=== PATIENT | male | born 1985 | race Caucasian/White ===

== ENCOUNTER 2017-05-05 01:08 | Emergency (ER) | payer OTHER ==
[2017-05-05 01:58] VITALS: BP 146/75; PULSE 70; TEMP 98.2; BMI 25.0
--- NOTE | 2017-05-05 02:15 | PDOC ---
History of Present Illness <Kimmy Sims - Last Filed: 05/05/17 06:15> - General History Source: Patient Exam Limitations: No Limitations - History of Present Illness Initial Comments: 05/05/17 05:43 Patient is a 32 year old male with no significant past medical history who presents to the ED with complaints of right upper quadrant pain that began 5 days ago. Patient reports right upper quadrant pain is a constant whining and waning pain that was intense enough to wake him from sleep initially and does not radiate. He reports pain is increased 5 hour after eating any types of foods. Patient states he took advil this morning at 11 am with slight relief. Patient reports experiencing 1 episode of vomiting 2 days ago. Denies chest pain, Sob. Denies nausea, coughing. Denies constipation, diarrhea. Denies contact with sick individuals, out of state travelling. Denies any other symptoms. Allergies: Peanuts. Social history: No smoking, No alcohol. No illicit drugs. Surgical history: None PMD: Dr. Dang. <Tristin Yanes - Last Filed: 05/05/17 06:16> - General Chief Complaint: Pain, Acute Stated Complaint: STOMACH PAIN Time Seen by Provider: 05/05/17 01:56 Past History - Suicide/Smoking/Psychosocial Hx Smoking History: Never smoked Have you smoked in the past 12 months: No Information on smoking cessation initiated: No Hx Alcohol Use: No Drug/Substance Use Hx: No <Kimmy Sims - Last Filed: 05/05/17 06:15> <Tristin Yanes - Last Filed: 05/05/17 06:16> - Past Medical History Allergies/Adverse Reactions: Allergies Allergy/AdvReac Type Severity Reaction Status Date / Time peanut Allergy Verified 05/05/17 02:00 Home Medications: Ambulatory Orders NK [No Known Home Medication] 05/05/17 Review of Systems - Review of Systems Able to Perform ROS?: Yes Comments:: 05/05/17 05:44 GENERAL/CONSTITUTIONAL: No fever or chills. No weakness. HEAD, EYES, EARS, NOSE AND THROAT: No change in vision. No ear pain or discharge. No sore throat. CARDIOVASCULAR: No chest pain or shortness of breath. RESPIRATORY: No cough, wheezing, or hemoptysis. GASTROINTESTINAL: +Right upper quadrant pain. No nausea, vomiting, diarrhea or constipation. GENITOURINARY: No dysuria, frequency, or change in urination. MUSCULOSKELETAL: No joint or muscle swelling or pain. No neck or back pain. SKIN: No rash NEUROLOGIC: No headache, vertigo, loss of consciousness, or change in strength/ sensation. ENDOCRINE: No increased thirst. No abnormal weight change. HEMATOLOGIC/LYMPHATIC: No anemia, easy bleeding, or history of blood clots. ALLERGIC/IMMUNOLOGIC: No hives or skin allergy. All Other Systems: Reviewed and Negative <Tristin Yanes - Last Filed: 05/05/17 06:16> *Physical Exam - Vital Signs Last Vital Signs Temp Pulse Resp BP Pulse Ox 98.2 F 70 16 146/75 100 05/05/17 01:55 05/05/17 01:55 05/05/17 01:55 05/05/17 01:55 05/05/17 01:55 <Kimmy Sims - Last Filed: 05/05/17 06:15> - Vital Signs Last Vital Signs Temp Pulse Resp BP Pulse Ox 98.2 F 70 16 146/75 100 05/05/17 01:55 05/05/17 01:55 05/05/17 01:55 05/05/17 01:55 05/05/17 01:55 - Physical Exam Comments: 05/05/17 05:45 GENERAL: Awake, alert, and fully oriented, in no acute distress HEAD: No signs of trauma EYES: PERRLA, EOMI, sclera anicteric, conjunctiva clear ENT: Auricles normal inspection, hearing grossly normal, nares patent, oropharynx clear without exudates. Moist mucosa NECK: Normal ROM, supple, no lymphadenopathy, JVD, or masses LUNGS: Breath sounds equal, clear to auscultation bilaterally. No wheezes, and no crackles HEART: Regular rate and rhythm, normal S1 and S2, no murmurs, rubs or gallops ABDOMEN: Soft, nontender, normoactive bowel sounds. No guarding, no rebound. No masses EXTREMITIES: Normal range of motion, no edema. No clubbing or cyanosis. No cords, erythema, or tenderness NEUROLOGICAL: Cranial nerves II through XII grossly intact. Normal speech, normal gait SKIN: Warm, Dry, normal turgor, no rashes or lesions noted. <Tristin Yanes - Last Filed: 05/05/17 06:16> ED Treatment Course - LABORATORY CBC & Chemistry Diagram: 05/05/17 02:45 05/05/17 02:45 <Kimmy Sims - Last Filed: 05/05/17 06:15> - LABORATORY CBC & Chemistry Diagram: 05/05/17 02:45 05/05/17 02:45 - ADDITIONAL ORDERS Additional order review: Laboratory Results 05/05/17 02:45 Sodium 142 Potassium 3.5 Chloride 103 Carbon Dioxide 31 Anion Gap 8 BUN 13 Creatinine 0.9 Creat Clearance w eGFR > 60 Random Glucose 90 Calcium 9.2 Total Bilirubin 0.2 AST 15 ALT 22 Alkaline Phosphatase 58 Total Protein 6.8 Albumin 3.7 05/05/17 02:45 RBC 3.97 L MCV 90.7 MCHC 33.5 RDW 13.4 MPV 8.8 Neutrophils % 48.7 Lymphocytes % 28.0 Monocytes % 6.6 Eosinophils % 16.3 H Basophils % 0.4 - Medications Given in the ED: ED Medications Discontinued Medications Generic Name Dose Route Start Last Admin Trade Name Faustinoq PRN Reason Stop Dose Admin Al Hydroxide/Mg Hydroxide 30 ml 05/05/17 02:16 05/05/17 03:09 Mylanta Oral Suspension - PO 05/05/17 02:17 30 ml ONCE ONE Administration Al Hydroxide/Mg Hydroxide 30 ml 05/05/17 05:12 05/05/17 05:30 Mylanta Oral Suspension - PO 05/05/17 05:13 30 ml ONCE ONE Administration Sodium Chloride 1,000 ml 05/05/17 02:17 05/05/17 03:09 Normal Saline - IV 05/05/17 02:18 1,000 ml ONCE ONE Administration <Tristin Yanes - Last Filed: 05/05/17 06:16> *DC/Admit/Observation/Transfer - Discharge Dispostion Admit: No <Kimmy Sims - Last Filed: 05/05/17 06:15> - Attestations Scribe Attestion: 05/05/17 05:45 Documentation prepared by Tristin Yanes, acting as medical data analyst for Kimmy Sims MD/DO. <Tristin Yanes - Last Filed: 05/05/17 06:16> Diagnosis at time of Disposition: Gas pain - Discharge Dispostion Disposition: HOME Condition at time of disposition: Improved - Referrals Referrals: Juaquin Dang MD [Primary Care Provider] - - Patient Instructions Printed Discharge Instructions: DI for Dyspepsia - Post Discharge Activity
[2017-05-05] MEDS ORDERED: MAG HYDROX/AL HYDROX/SIMETH 30 ML UNIT-DOSE CUP PO ONE ×2 (02:16→05:12)
[2017-05-05] MEDS ORDERED: SODIUM CHLORIDE 0.9% 500 ML INFUS.BAG IV ONE (02:17)
[2017-05-05] MEDS ORDERED: MAG HYDROX/AL HYDROX/SIMETH 30 ML UNIT-DOSE CUP ONE ×2 (02:53→05:27)
[2017-05-05 02:54] LABS: BASO % 0.4 % (0-2.0); EOS % 16.3 % (0-4.5); HEMOGLOBIN 12.1 GM/dL (11.7-16.9); MCH 30.4 pg (25.7-33.7); MCHC 33.5 g/dl (32.0-35.9); MEAN CELL VOLUME 90.7 fl (80-96); MEAN PLT VOLUME 8.8 fl (7.5-11.1); MONO % 6.6 % (3.8-10.2); NEUT % 48.7 % (42.8-82.8); PLATELET COUNT 227 K/MM3 (134-434); RBC 3.97 M/mm3 (4.00-5.60); RDW 13.4 % (11.9-15.9); WHITE BLOOD COUNT 11.2 K/mm3 (4.0-10.0)
[2017-05-05 03:18] LABS: ALBUMIN 3.7 g/dl (3.4-5.0); ANION GAP 8 (8-16); BILIRUBIN,TOTAL 0.2 mg/dL (0.2-1.0); BLOOD UREA NITROGEN 13 mg/dL (7-18); CALCIUM 9.2 mg/dL (8.5-10.1); CHLORIDE 103 mmol/L (98-107); CO2 31 mmol/L (21-32); CREATININE 0.9 mg/dL (0.7-1.3); GLUCOSE,RANDOM 90 mg/dL (74-106); POTASSIUM 3.5 mmol/L (3.5-5.1); SGOT/AST 15 U/L (15-37); SGPT/ALT 22 U/L (12-78); SODIUM 142 mmol/L (136-145); TOT PROT 6.8 g/dl (6.4-8.2)
[2017-05-05 03:19] LABS: ALK PHOS 58 U/L (45-117)
[2017-05-05] MEDS ORDERED: FAMOTIDINE 20 MG/50 ML IVPB 20 MG/50 ML MG IVPB ONE (05:12)
--- NOTE | 2017-05-05 11:39 | EKG ---
Test Reason : Blood Pressure : / mmHG Vent. Rate : 056 BPM Atrial Rate : 056 BPM P-R Int : 158 ms QRS Dur : 082 ms QT Int : 438 ms P-R-T Axes : 046 -06 039 degrees QTc Int : 422 ms SINUS BRADYCARDIA OTHERWISE NORMAL ECG NO PREVIOUS ECGS AVAILABLE Confirmed by MD YANE, TONIA ([id number]) on 05/05/2017 11:38:53 AM Referred By: Confirmed By:TONIA CHE MD
== END 2017-05-05 05:35 | disposition home or self-care (01) ==
LOC: JER 01:08
PROC: 3E033GC Introduction of Other Therapeutic Substance into Peripheral Vein, Percutaneous Approach (ICD-10-PCS; principal; 2017-05-05)
DX: R14.1 Gas pain (principal)
CPT/HCPCS: 36415; 71046-TC; 74019-TC; 80053; 85025; 93005; 93010; 96365; 99283-25

== ENCOUNTER 2017-05-09 14:35 | Emergency (ER) | payer OTHER ==
--- NOTE | 2017-05-09 15:01 | PDOC ---
Rapid Medical Evaluation Time Seen by Provider: 05/09/17 15:01 Medical Evaluation: Allergies Allergy/AdvReac Type Severity Reaction Status Date / Time peanut Allergy Verified 05/05/17 02:00 05/09/17 15:01 Healthy 32 year old male with 10 days of intermittent RUQ pain, worse 3-4 hrs after eating. Associated n/v. No diarrhea or constipation. Chills, no fevers. Seen 05/05 for same; had negative AXR at that time. Seen by PCP today and sent for further evaluation. Tender to gentle palpation RUQ V/s unremarkable Labs including CBC, CMP, lipase Gallbladder u/s To Main ED for further evaluation Discharge Disposition - Referrals Referrals: Juaquin Dang MD [Primary Care Provider] - - Patient Instructions - Post Discharge Activity
[2017-05-09 15:05] VITALS: BP 128/90; PULSE 58; TEMP 98; BMI 25.8
[2017-05-09 16:03] LABS: BASO % 3.1 % (0-2.0); HEMOGLOBIN 14.1 GM/dL (11.7-16.9); LYMPH % 23.4 % (8-40); MCH 30.2 pg (25.7-33.7); MCHC 33.6 g/dl (32.0-35.9); MEAN CELL VOLUME 89.9 fl (80-96); MEAN PLT VOLUME 8.7 fl (7.5-11.1); MONO % 6.3 % (3.8-10.2); NEUT % 60.2 % (42.8-82.8); PLATELET COUNT 275 K/MM3 (134-434); RBC 4.68 M/mm3 (4.00-5.60); RDW 13.3 % (11.9-15.9); WHITE BLOOD COUNT 11.4 K/mm3 (4.0-10.0)
[2017-05-09 16:05] LABS: URINE APPEARANCE CLEAR; URINE BILIRUBIN NEGATIVE (NEGATIVE); URINE BLOOD NEGATIVE (NEGATIVE); URINE COLOR YELLOW; URINE GLUCOSE (UA) NEGATIVE (NEGATIVE); URINE KETONE TRACE (NEGATIVE); URINE LEUK ESTERASE NEGATIVE (NEGATIVE); URINE NITRITE NEGATIVE (NEGATIVE); URINE UROBILINOGEN NEGATIVE mg/dL (0.2-1.0)
[2017-05-09 16:07] LABS: URINE PROTEIN 1+ (NEGATIVE)
[2017-05-09 16:08] LABS: EPI CELLS RARE /HPF (FEW); URINE MUCUS RARE
[2017-05-09 16:35] LABS: ALBUMIN 4.6 g/dl (3.4-5.0); ANION GAP 8 (8-16); BLOOD UREA NITROGEN 10 mg/dL (7-18); CALCIUM 9.5 mg/dL (8.5-10.1); CHLORIDE 101 mmol/L (98-107); CO2 28 mmol/L (21-32); CREATININE 0.9 mg/dL (0.7-1.3); GLUCOSE,RANDOM 98 mg/dL (74-106); LIPASE 155 U/L (73-393); POTASSIUM 4.1 mmol/L (3.5-5.1); SGOT/AST 14 U/L (15-37); SGPT/ALT 29 U/L (12-78); SODIUM 137 mmol/L (136-145)
[2017-05-09 16:37] LABS: ALK PHOS 75 U/L (45-117); BILIRUBIN,TOTAL 0.8 mg/dL (0.2-1.0); TOT PROT 8.1 g/dl (6.4-8.2)
--- NOTE | 2017-05-09 18:30 | PDOC ---
History of Present Illness - General Chief Complaint: Pain Stated Complaint: SENT BY PCP Time Seen by Provider: 05/09/17 15:01 - History of Present Illness Initial Comments: Patient complaining of nausea, vomiting, diarrhea, and RUQ pain for the past few days. Was here a few days ago and discharged without pathology noted. Patient was seen in [facility] with RUW tenderness and US significant for possible cholecystitis with large stone and possible wall thickening. Patient was still in extreme pain on my abdominal exam but continuously stated that he had to leave. I went to get the AMA form but the patient had eloped prior to having him sign it. 05/09/17 18:41 Past History - Past Medical History Allergies/Adverse Reactions: Allergies Allergy/AdvReac Type Severity Reaction Status Date / Time peanut Allergy Verified 05/09/17 15:05 Home Medications: Ambulatory Orders NK [No Known Home Medication] 05/05/17 COPD: No - Suicide/Smoking/Psychosocial Hx Smoking History: Never smoked Have you smoked in the past 12 months: No Information on smoking cessation initiated: No Hx Alcohol Use: No Drug/Substance Use Hx: Yes Substance Use Type: Marijuana *Physical Exam - Vital Signs Last Vital Signs Temp Pulse Resp BP Pulse Ox 98.0 F 58 L 18 128/90 99 05/09/17 15:02 05/09/17 15:02 05/09/17 15:02 05/09/17 15:02 05/09/17 15:02 - Physical Exam General Appearance: Yes: Nourished, Appropriately Dressed, Apparent Distress, Mild Distress HEENT: positive: EOMI, GENESIS, Normal ENT Inspection, Normal Voice Neck: positive: Trachea midline, Normal Thyroid, Supple. negative: Tender, Rigid Respiratory/Chest: positive: Lungs Clear, Normal Breath Sounds. negative: Chest Tender, Respiratory Distress Cardiovascular: positive: Regular Rhythm, Tachycardia. negative: Regular Rate Gastrointestinal/Abdominal: positive: Normal Bowel Sounds, Tender (RUQ tenderness), Flat, Soft Musculoskeletal: positive: Normal Inspection Extremity: positive: Normal Inspection, Normal Range of Motion. negative: Tender Integumentary: positive: Normal Color, Dry, Warm Neurologic: positive: Fully Oriented, Alert, Normal Mood/Affect, Motor Strength 5/5 ED Treatment Course - LABORATORY CBC & Chemistry Diagram: 05/09/17 15:37 05/09/17 15:37 - ADDITIONAL ORDERS Additional order review: Laboratory Results 05/09/17 05/09/17 15:44 15:37 Sodium 137 Potassium 4.1 Chloride 101 Carbon Dioxide 28 Anion Gap 8 BUN 10 D Creatinine 0.9 Creat Clearance w eGFR > 60 Random Glucose 98 Calcium 9.5 Total Bilirubin 0.8 D AST 14 L ALT 29 D Alkaline Phosphatase 75 D Total Protein 8.1 Albumin 4.6 D Lipase 155 Urine Color Yellow Urine Appearance Clear Urine pH 5.0 Ur Specific [place] 1.027 Urine Protein 1+ H Urine Glucose (UA) Negative Urine Ketones Trace H Urine Blood Negative Urine Nitrite Negative Urine Bilirubin Negative Urine Urobilinogen Negative Ur Leukocyte Esterase Negative Urine WBC (Auto) <1 Urine RBC (Auto) <1 Ur Epithelial Cells Rare Urine Mucus Rare 05/09/17 15:37 RBC 4.68 MCV 89.9 MCHC 33.6 RDW 13.3 MPV 8.7 Neutrophils % 60.2 D Lymphocytes % 23.4 Monocytes % 6.3 Eosinophils % 7.0 H Basophils % 3.1 H D Medical Decision Making - Medical Decision Making Patient has nrmlas labs but likely cholecystitis but eloped. I was able to perform a reasonable physical exam which was still mathew's positive. 05/09/17 19:02 *DC/Admit/Observation/Transfer Diagnosis at time of Disposition: Cholecystitis - Discharge Dispostion Disposition: ELOPED Condition at time of disposition: Stable Admit: No - Referrals Referrals: Juaquin Dang MD [Primary Care Provider] - - Patient Instructions - Post Discharge Activity
--- NOTE | 2017-05-09 18:57 | PDOC ---
Attending Attestation - Resident Resident Name: Nunu Santo - ED Attending Attestation I have performed the following: I have examined & evaluated the patient, The case was reviewed & discussed with the resident, I agree w/resident's findings & plan, Exceptions are as noted - HPI HPI: 05/09/17 18:55 32-year-old male with recurring right upper quadrant pain. - Physicial Exam PE: 05/09/17 18:56 Afebrile. Exam as noted - Medical Decision Making 05/09/17 18:56 Patient seen and evaluated with the resident. I agree with the overall evaluation, assessment, and management with the following summary of visit: 32-year-old male with recurring biliary colic, afebrile. White count 11.4, LFTs are normal, lipase normal. Right upper quadrant ultrasound concerning for a mobile stones with thickened gallbladder wall and positive sonographic Dumont's. Patient requires admission for possible early cholecystitis/intractable biliary colic, but he eloped after discussion of the risks, stating he had to care for things at home and would return. Aware of the risks, states he will return for further management, at which time he should be admitted for further GI/surgery evaluation.
== END 2017-05-09 18:55 | disposition left against medical advice (07) ==
LOC: JER 14:35
DX: K81.9 Cholecystitis, unspecified (principal)
CPT/HCPCS: 36415; 76705-TC; 80053; 81003; 81015; 83690; 85025; 99283-25

== ENCOUNTER 2017-05-09 20:14 | Inpatient (IN) | payer OTHER ==
--- NOTE | 2017-05-09 20:16 | PDOC ---
Rapid Medical Evaluation Time Seen by Provider: 05/09/17 20:15 Medical Evaluation: Allergies Allergy/AdvReac Type Severity Reaction Status Date / Time peanut Allergy Verified 05/09/17 15:05 05/09/17 20:16 Healthy 32 year old male with 10 days of intermittent RUQ pain, worse 3-4 hrs after eating. Associated n/v. No diarrhea or constipation. Chills, no fevers. Seen 05/05 for same; had negative AXR at that time. Seen by PCP today and sent for further evaluation. Seen in ED today with WBC 11.3; right upper quadrant ultrasound concerning for a mobile stones with thickened gallbladder wall and positive sonographic Dumont's. Admission recommended by ED physician. Patient eloped stating he had things to take care of at home, now returns.
--- NOTE | 2017-05-09 20:59 | PDOC ---
History of Present Illness <Razia Calvin - Last Filed: 05/09/17 21:20> - General History Source: Patient, Old Records Exam Limitations: No Limitations - History of Present Illness Initial Comments: 05/09/17 22:17 The patient is a 32 year old male with no pertinent past medical history who presents to the ED with complaints of RUQ pain, nausea and vomiting for the past few days. The patient was evaluated three hours ago in the ED where he was found to have acute cholecystitis via ultrasound. The patient left earlier to go home and take care of some things before returning back to be admitted. The patient denies any fever or chills. He denies any cough, shortness of breath, chest pain, or urinary symptoms. <Francisca Winkler - Last Filed: 05/09/17 22:21> - General Chief Complaint: Pain Stated Complaint: PAIN Time Seen by Provider: 05/09/17 20:15 Past History - Past Medical History COPD: No - Suicide/Smoking/Psychosocial Hx Smoking History: Never smoked Have you smoked in the past 12 months: No Information on smoking cessation initiated: No Hx Alcohol Use: No Drug/Substance Use Hx: No Substance Use Type: None, Marijuana <Razia Calvin - Last Filed: 05/09/17 21:20> <Francisca Winkler - Last Filed: 05/09/17 22:21> - Past Medical History Allergies/Adverse Reactions: Allergies Allergy/AdvReac Type Severity Reaction Status Date / Time peanut Allergy Verified 05/09/17 20:22 Home Medications: Ambulatory Orders NK [No Known Home Medication] 05/05/17 Review of Systems - Review of Systems Able to Perform ROS?: Yes Comments:: 05/09/17 22:17 GENERAL/CONSTITUTIONAL: No fever or chills. No weakness. HEAD, EYES, EARS, NOSE AND THROAT: No change in vision. No ear pain or discharge. No sore throat. CARDIOVASCULAR: No chest pain or shortness of breath. RESPIRATORY: No cough, wheezing, or hemoptysis. GASTROINTESTINAL: Present: abdominal pain, nausea, vomiting No diarrhea or constipation. GENITOURINARY: No dysuria, frequency, or change in urination. MUSCULOSKELETAL: No joint or muscle swelling or pain. No neck or back pain. SKIN: No rash NEUROLOGIC: No headache, vertigo, loss of consciousness, or change in strength/ sensation. ENDOCRINE: No increased thirst. No abnormal weight change. HEMATOLOGIC/LYMPHATIC: No anemia, easy bleeding, or history of blood clots. ALLERGIC/IMMUNOLOGIC: No hives or skin allergy. All Other Systems: Reviewed and Negative <Francisca Winkler - Last Filed: 05/09/17 22:21> *Physical Exam - Vital Signs Last Vital Signs Temp Pulse Resp BP Pulse Ox 98.4 F 89 17 132/96 99 05/09/17 20:19 05/09/17 20:19 05/09/17 20:19 05/09/17 20:19 05/09/17 20:19 <Razia Calvin - Last Filed: 05/09/17 21:20> - Vital Signs Last Vital Signs Temp Pulse Resp BP Pulse Ox 98.4 F 89 17 132/96 99 05/09/17 20:19 05/09/17 20:19 05/09/17 20:19 05/09/17 20:19 05/09/17 20:19 - Physical Exam Comments: 05/09/17 22:20 GENERAL: Awake, alert, and fully oriented, in no acute distress HEAD: No signs of trauma EYES: PERRLA, EOMI, sclera anicteric, conjunctiva clear ENT: Auricles normal inspection, hearing grossly normal, nares patent, oropharynx clear without exudates. Moist mucosa NECK: Normal ROM, supple, no lymphadenopathy, JVD, or masses LUNGS: Breath sounds equal, clear to auscultation bilaterally. No wheezes, and no crackles HEART: Regular rate and rhythm, normal S1 and S2, no murmurs, rubs or gallops ABDOMEN: Soft, tenderness on palpation to RUQ, normoactive bowel sounds. No guarding, no rebound. No masses EXTREMITIES: Normal range of motion, no edema. No clubbing or cyanosis. No cords, erythema, or tenderness NEUROLOGICAL: Cranial nerves II through XII grossly intact. Normal speech, normal gait SKIN: Warm, Dry, normal turgor, no rashes or lesions noted. <Francisca Winkler - Last Filed: 05/09/17 22:21> ED Treatment Course - Medications Given in the ED: ED Medications Discontinued Medications Generic Name Dose Route Start Last Admin Trade Name Freq PRN Reason Stop Dose Admin Acetaminophen 1,000 mg 05/09/17 21:10 05/09/17 21:43 Ofirmev Injection - IVPB 05/09/17 21:11 1,000 mg ONCE ONE Administration Famotidine/Sodium Chloride 20 mg in 50 mls @ 100 mls/hr 05/09/17 21:15 22:02 Pepcid 20 Mg Premixed Ivpb - IVPB 05/09/17 21:44 100 mls/hr ONCE ONE Administration Cefoxitin Sodium 1 gm in 10 mls @ 120 mls/hr 05/09/17 22:00 05/09/17 22:08 Mefoxin (Restricted To Id) - IVPUSH 05/09/17 22:04 120 mls/hr ONCE ONE Administration Ondansetron HCl 4 mg 05/09/17 21:06 05/09/17 21:43 Zofran Injection IVPUSH 05/09/17 21:07 4 mg ONCE ONE Administration Sodium Chloride 1,000 ml 05/09/17 21:06 05/09/17 21:44 Normal Saline - IV 05/09/17 21:07 1,000 ml ONCE ONE Administration <Francisca Winkler - Last Filed: 05/09/17 22:21> Medical Decision Making - Medical Decision Making 05/09/17 21:20 a/p: 32yo male with ruq pain -seen in ED earlier tonight -pt dx with cholecystitis but had to go home and deal with business -returns for further eval of abd pain and nausea currently has pain will medicate labs drawn earlier today ultrasound shows 2cm stone in gb neck case discussed with DR. Garcia - requests abx - cefoxitin, d5 1/2nss w 20meq of kcl, npo, labs in am accepts pt to her service <Razia Calvin - Last Filed: 05/09/17 21:20> *DC/Admit/Observation/Transfer - Discharge Dispostion Admit: Yes - Attestations Physician Attestion: 05/09/17 21:15 I, Dr. Razia Calvin, DO, attest that this document has been prepared under my direction and personally reviewed by me in its entirety. I further attest, that it accurately reflects all work, treatment, procedures and medical decision -making performed by me. <Razia Calvin - Last Filed: 05/09/17 21:20> - Attestations Scribe Attestion: 05/09/17 22:21 Documentation prepared by Francisca Winkler, acting as medical case manager for Razia Calvin DO. <Francisca Winkler - Last Filed: 05/09/17 22:21> Diagnosis at time of Disposition: Acute cholecystitis - Discharge Dispostion Condition at time of disposition: Fair
[2017-05-09] MEDS ORDERED: SODIUM CHLORIDE 0.9% 1000 ML INFUS.BAG IV ONE (21:06)
[2017-05-09] MEDS ORDERED: ONDANSETRON 4 MG/2 ML VIAL IVPUSH ONE (21:06)
[2017-05-09] MEDS ORDERED: CEFOXITIN SODIUM 1 GM in DEXTROSE 5%-WATER - 100 ML IVPB ONE (21:08)
[2017-05-09] MEDS ORDERED: ACETAMINOPHEN 1000 MG/100 ML VIAL (NON FORMULARY) IVPB ONE (21:10)
[2017-05-09] MEDS ORDERED: FAMOTIDINE 20 MG/50 ML IVPB 20 MG/50 ML MG IVPB ONE ×2 (21:15→21:55)
[2017-05-09] MEDS ORDERED: ACETAMINOPHEN INJECTION 100 ML IVPB ONE (21:34)
[2017-05-09] MEDS ORDERED: ONDANSETRON 4 MG/2 ML VIAL ONE (21:34)
[2017-05-09 21:51] LABS: INR 1.19 (0.82-1.09); PROTHROMBIN TIME (PATIENT) 13.4 SEC (9.98-11.88)
[2017-05-09 21:54] LABS: ACTIVATED PTT 24.7 SECONDS (26.9-34.4)
[2017-05-09] MEDS ORDERED: CEFOXITIN SODIUM 1 GM PUSH 1 GM/10 ML DISP.SYRIN IVPUSH ONE (22:00)
[2017-05-09] MEDS: D5-1/2NS+20 MEQ KCL - 20 MEQ/1,000 ML INFUS.BAG IV SCH (22:36)
[2017-05-09] MEDS ORDERED: VANCOMYCIN 1 GRAM (PRE-DOCKED) 1,000 MG/250 ML BAG IVPB ONE (22:51)
[2017-05-10 00:54] VITALS: BMI 26.0
[2017-05-10 08:09] LABS: ALBUMIN 4.4 g/dl (3.4-5.0); ALK PHOS 76 U/L (45-117); ANION GAP 6 (8-16); BLOOD UREA NITROGEN 9 mg/dL (7-18); CALCIUM 8.6 mg/dL (8.5-10.1); CHLORIDE 103 mmol/L (98-107); CO2 27 mmol/L (21-32); GLUCOSE,RANDOM 95 mg/dL (74-106); POTASSIUM 3.9 mmol/L (3.5-5.1); SGOT/AST 15 U/L (15-37); SGPT/ALT 26 U/L (12-78); SODIUM 136 mmol/L (136-145); TOT PROT 7.8 g/dl (6.4-8.2)
[2017-05-10 08:22] LABS: BASO % 1.2 % (0-2.0); EOS % 12.2 % (0-4.5); HEMATOCRIT 41.9 % (35.4-49); HEMOGLOBIN 13.8 GM/dL (11.7-16.9); LYMPH % 30.4 % (8-40); MEAN CELL VOLUME 90.8 fl (80-96); MEAN PLT VOLUME 8.9 fl (7.5-11.1); MONO % 6.7 % (3.8-10.2); NEUT % 49.5 % (42.8-82.8); PLATELET COUNT 278 K/MM3 (134-434); RBC 4.61 M/mm3 (4.00-5.60); RDW 13.3 % (11.9-15.9); WHITE BLOOD COUNT 8.2 K/mm3 (4.0-10.0)
[2017-05-10] MEDS ORDERED: cefOXitin SODIUM 2 GM VIAL (RESTRICTED TO ID) IVPB STA (08:59)
--- NOTE | 2017-05-10 09:10 | HP ---
Admitting History and Physical - Primary Care Physician PCP: Juaquin Dang - Admission Chief Complaint: RUQ pain History of Present Illness: 32yo healthy M with no PMH/PSH recently traveled to [facility] and "didn't eat much " while traveling. Came home over a week ago and "binge ate" a lot of junk and fatty foods for 2-3 days. He began having RUQ pain with some radiation to epigastric area, and came to ER over the weekend, where he had AXR and labs and was told it was most likely gas. He has taken a lot of gas medication OTC since , but the pain has persisted, especially after eating, and has been severe enough at times to make him drop to his knees. He tried 800mg ibuprofen, which did not help, prompting a visit to his PMD Dr. Dang, who sent him to ER yesterday. WBC in ER was 11 (same as weekend), LFTs and lipase normal, and he had an US showing an impacted stone in the neck of the gallbladder with positive Dumont's sign. He was advised to stay for admission for acute cholecystitis, but needed to go home first to deal with things so he could come back and stay, and he returned yesterday evening for admission. He got IV Tylenol last night, and his pain has been better overall. No N/V, no F/C, no change in bowel or urinary habits. History Source: Patient Limitations to Obtaining History: No Limitations - Past Medical History Additional Past Medical History: denies/none - Past Surgical History Past Surgical History: Yes: None Additional Past Surgical History: couple wisdom teeth out - Smoking History Smoking history: Never smoked Have you smoked in the past 12 months: No - Alcohol/Substance Use Hx Alcohol Use: Yes (few times a month) History of Substance Use: reports: Marijuana (daily, vaporizer at times) Date of Last Use: 05/09/17 - Social History Usual Living Arrangement: Yes: Alone ADL: Independent Occupation: student History of Recent Travel: Yes ([facility]) Home Medications - Allergies Allergies/Adverse Reactions: Allergies Allergy/AdvReac Type Severity Reaction Status Date / Time peanut Allergy Verified 05/09/17 20:22 - Home Medications Home Medications: Ambulatory Orders NK [No Known Home Medication] 05/05/17 Family Disease History - Family Disease History Family History: Unremarkable Review of Systems - Review of Systems Constitutional: denies: Chills, Fever Eyes: denies: Blurred Vision, Recent Change in Vision HENT: denies: Difficult Swallowing, Nasal Congestion, Throat Pain Neck: denies: Swollen Glands, Tenderness Cardiovascular: denies: Chest Pain, Palpitations Respiratory: denies: Cough, SOB Gastrointestinal: reports: Abdominal Pain (with hpi). denies: Constipation, Diarrhea, Nausea, Vomiting Genitourinary: denies: Burning, Dysuria, Frequency, Urgency Musculoskeletal: denies: Back Pain, Joint Pain, Muscle Pain Integumentary: denies: Change in Color, Rash Neurological: reports: Dizziness (with hpi, from pain), Headache (with hpi) Psychiatric: denies: Anxiety, Depression Physical Examination Vital Signs: Vital Signs Temperature 97.5 F L 05/10/17 06:00 Pulse Rate 69 05/10/17 06:00 Respiratory Rate 20 05/10/17 06:00 Blood Pressure 100/54 05/10/17 06:00 O2 Sat by Pulse Oximetry (%) 99 05/10/17 00:35 Constitutional: Yes: Well Nourished, No Distress, Calm Eyes: Yes: Conjunctiva Clear, EOM Intact. No: Sclera Icterus HENT: Yes: Atraumatic, Normocephalic Neck: Yes: Supple, Trachea Midline Cardiovascular: Yes: Regular Rate and Rhythm. No: Murmur Respiratory: Yes: Regular, CTA Bilaterally Gastrointestinal: Yes: Normal Bowel Sounds, Soft, Tenderness (RUQ to deep palpation, mostly just under costal margin, no R/G). No: Distention, Tenderness , Epigastrium ...Rectal Exam: Yes: Deferred Renal/: No: CVA Tenderness - Left, CVA Tenderness - Right Musculoskeletal: No: Back Pain, Joint Stiffness, Joint Swelling Extremities: No: Cool, Cyanosis Edema: No Peripheral Pulses WNL: Yes Integumentary: No: Jaundice, Rash Neurological: Yes: Alert, Oriented Psychiatric: Yes: Alert, Oriented Labs: CBC, BMP 05/10/17 06:00 05/10/17 06:00 CMP Sodium 136 mmol/L (136-145) 05/10/17 06:00 Potassium 3.9 mmol/L (3.5-5.1) 05/10/17 06:00 Chloride 103 mmol/L (98-107) 05/10/17 06:00 Carbon Dioxide 27 mmol/L (21-32) 05/10/17 06:00 Anion Gap 6 (8-16) L 05/10/17 06:00 BUN 9 mg/dL (7-18) 05/10/17 06:00 Creatinine 1.0 mg/dL (0.7-1.3) 05/10/17 06:00 Creat Clearance w eGFR > 60 (>60) 05/10/17 06:00 Random Glucose 95 mg/dL (74-106) 05/10/17 06:00 Calcium 8.6 mg/dL (8.5-10.1) 05/10/17 06:00 Total Bilirubin 1.0 mg/dL (0.2-1.0) D 05/10/17 06:00 AST 15 U/L (15-37) 05/10/17 06:00 ALT 26 U/L (12-78) 05/10/17 06:00 Alkaline Phosphatase 76 U/L (45-117) 05/10/17 06:00 Total Protein 7.8 g/dl (6.4-8.2) 05/10/17 06:00 Albumin 4.4 g/dl (3.4-5.0) 05/10/17 06:00 Lipase 254 U/L (73-393) 05/10/17 06:00 Imaging - Results Ultrasound: Report Reviewed (almost 2cm gallstone wedged in neck of gallbladder with mildly thickened wall, adequately distended, no ductal dilation), Image Reviewed Problem List - Problems (1) Calculus of gallbladder with acute cholecystitis without obstruction Assessment/Plan: admit to surgery NPO/IVF until after OR pain meds prn periop antibiotics DVT prophylaxis Discussed with patient risks, benefits and alternatives of laparoscopic possible open cholecystectomy, including but not limited to bleeding, infection , injury to adjacent structures, bile leak or ductal injury, intraabdominal abscess, hernia, need for further procedures; alternatives include antibiotics, delayed or no surgery - risks of this include cholangitis, sepsis, recurrence of cholecystitis, pancreatitis, biliary colic. Patient desires to proceed with operation - will take to OR for above. Informed consent signed for same, and all questions answered. anticipate resuming po postop likely d/c home in am if ambulating, voiding, armin po, on oral pain meds Code(s): K80.00 - CALCULUS OF GALLBLADDER W ACUTE CHOLECYST W/O OBSTRUCTION (2) RUQ pain Code(s): R10.11 - RIGHT UPPER QUADRANT PAIN (3) Marijuana abuse, continuous Assessment/Plan: advised to refrain from use Code(s): F12.10 - CANNABIS ABUSE, UNCOMPLICATED
[2017-05-10] MEDS ORDERED: CEFOXITIN SODIUM 2 GM in DEXTROSE 5%-WATER - 100 ML IVPB ONE ×2 (09:15→18:00)
[2017-05-10 09:17] LABS: LIPASE 254 U/L (73-393)
[2017-05-10] MEDS: D5-1/2NS+20 MEQ KCL - 20 MEQ/1,000 ML INFUS.BAG IV SCH (09:58)
[2017-05-10] MEDS ORDERED: BUPIVACAINE HCL/PF 0.5% (5MG/ML) 10 ML VIAL ONE (10:07)
[2017-05-10] MEDS ORDERED: ONDANSETRON 4 MG/2 ML VIAL IVPUSH PRN ×2 (10:37→15:18)
[2017-05-10] MEDS ORDERED: PROMETHAZINE HCL 25 MG/1 ML VIAL IVPB PRN ×2 (10:37→12:46)
[2017-05-10] MEDS ORDERED: LACTATED RINGERS SOLUTION 1,000 ML IV SCH (10:45)
[2017-05-10] MEDS ORDERED: MIDAZOLAM HCL 2 MG/2 ML SINGLE DOSE VIAL ONE (10:48)
[2017-05-10] MEDS ORDERED: ROCURONIUM BROMIDE 50 MG/5 ML VIAL ONE (10:48)
[2017-05-10] MEDS ORDERED: PROPOFOL 20 ML ONE (10:48)
[2017-05-10] MEDS ORDERED: DEXAMETHASONE SOD PHOSPHATE 4 MG/1 ML VIAL ONE (11:18)
[2017-05-10] MEDS ORDERED: NEOSTIGMINE METHYLSULFATE 0.5 MG/ML - 10 ML MDV ONE (12:04)
[2017-05-10] MEDS ORDERED: GLYCOPYRROLATE 0.2 MG/1 ML VIAL ONE (12:04)
[2017-05-10] MEDS ORDERED: LABETALOL HCL 5 MG/1 ML (100MG/20 ML VIAL) ONE (12:06)
[2017-05-10] MEDS ORDERED: BUPIVACAINE HCL/PF (5 MG/ML) 30 ML VIAL IJ ONE (12:07)
--- NOTE | 2017-05-10 12:28 | OP ---
Operative Note - Note: Operative Date: 05/10/17 Pre-Operative Diagnosis: acute cholecystitis with impacted stone Operation: laparoscopic cholecystectomy Findings: thin omental adhesions to gallbladder, impacted stone at neck, gallbladder decompressed of 50ml hydrops, critical view identified Post-Operative Diagnosis: Other (same as preop plus hydrops) Surgeon: Loi Garcia Airline Dispatcher: Jacob Quintanilla Anesthesiologist/DOCK PUMPER: Winston White Anesthesia: General, Local (10ml 0.5% marcaine) Specimens Removed: gallbladder to pathology Estimated Blood Loss (mls): 5 Fluid Volume Replaced (mls): 300 (crystalloid) Operative Report Dictated: Yes
[2017-05-10] MEDS ORDERED: ACETAMINOPHEN 325 MG TABLET (FP) PO PRN (12:32)
[2017-05-10] MEDS ORDERED: IBUPROFEN 600 MG TABLET (FP) PO PRN ×2 (12:33→12:46)
[2017-05-10] MEDS ORDERED: oxyCODONE HCL 5 MG TABLET PO PRN ×2 (12:33→12:46)
[2017-05-10] MEDS ORDERED: D5-1/2NS+20 MEQ KCL - 20 MEQ/1,000 ML INFUS.BAG IV SCH (12:46)
--- NOTE | 2017-05-10 14:02 | OP ---
DATE OF OPERATION: 05/10/2017 PREOPERATIVE DIAGNOSIS: Acute cholecystitis with impacted stone. POSTOPERATIVE DIAGNOSIS: Acute cholecystitis with impacted stone plus hydrops. PROCEDURE: Laparoscopic cholecystectomy. SURGEON: Loi Garcia MD AQUATIC FACILITY MANAGER: Jacob Quintanilla MD ANESTHESIA: General endotracheal and local, 10 mL of 0.5% Marcaine. ESTIMATED BLOOD LOSS: 5 mL. FLUIDS: 300 mL crystalloid. SPECIMEN: Gallbladder to pathology. FINDINGS: Thin omental adhesions to the gallbladder, impacted stone at the gallbladder neck. The gallbladder was decompressed of 50 mL of hydrops, and the critical view was identified. DISPOSITION: Stable and extubated to PACU. INDICATIONS FOR PROCEDURE: The patient is a 32-year-old healthy male with no significant past medical or surgical history but does smoke marijuana, who recently returned from a trip to [facility] and binged for several days on junk foods and fatty foods, at which point he began experiencing right upper quadrant pain with some radiation to the epigastric area. This prompted a visit to the emergency room several days prior to this presentation, where he was discharged with a diagnosis of gas pain. Since then, gas medication and ibuprofen have not prevented the pain from persisting and becoming severe enough to have him return to his primary care physician, who sent him to the emergency room yesterday. White count in the ER was 11 both times. LFTs and lipase were normal, but this time, he had an ultrasound showing an impacted stone in the neck of the gallbladder with a positive Dumont sign. He has been admitted for acute cholecystitis, started on antibiotics and fluids. Risks, benefits, and alternatives of laparoscopic, possible open cholecystectomy were discussed with the patient including, but not limited to, bleeding, infection, injury to adjacent structures, bile leak or ductal injury, intra-abdominal abscess, hernia, need for further procedures, and alternatives inclusive of antibiotics and delayed or no surgery, with attendant risks of cholangitis, sepsis, recurrence of cholecystitis or pancreatitis. The patient desires to proceed with an operation. Informed consent was signed, and the patient is now brought to the OR for the same. OPERATIVE TECHNIQUE: The patient was brought to the operating room and laid supine on the operating room table. Sequential compression devices were applied to bilateral lower extremities. As Cefoxitin had just been given prior to bringing him down from the floor, no additional antibiotics were given in the OR. Hair was clipped from his abdomen in the holding area prior to entering the room. After induction and intubation by Anesthesia, the patient's abdomen was prepped and draped in sterile fashion. A small supraumbilical midline incision was made with a scalpel and carried into subcutaneous tissues with electrocautery, until the abdominal wall fascia was identified, scored, and elevated with Richie clamps. The peritoneum was entered bluntly with the tip of a clamp, and entry into the peritoneal cavity ensured with a fingertip, as well as the absence of any underlying adhesions. A stay stitch of 0 Vicryl was placed in the fascia in figure of eight fashion for later closure, and a Connie trocar introduced directly into the abdominal cavity and secured in place with the balloon. The abdomen was insufflated with carbon dioxide and the laparoscope inserted to inspect the abdominal cavity. The patient was placed in reverse Trendelenburg position with the right side planed upward. The gallbladder was visible at the edge of the liver and appeared to be distended with some overlying omental adhesion. An additional 5-mm port was placed under direct vision in the subxiphoid area, and a grasper through this used to peel down some of the thin, filmy omental adhesions to the front of the gallbladder, as well as confirming that the gallbladder was tense and distended with fluid. Two additional 5-mm ports were placed under direct vision in the right upper quadrant. Through the first one, a decompression needle was introduced and used to decompress the gallbladder of approximately 50 mL of clear fluid (hydrops). The gallbladder was then grasped with a grasper and elevated over the liver edge at the fundus. A 2nd grasper was used to grasp the infundibulum, and the stone that was visible impacted in the neck was gently milked into the gallbladder to try to keep it away from the cystic duct. The cystic duct was then isolated with the Maryland dissector, until it was clearly identified as the only structure entering the gallbladder from both sides. It was then clipped, 2 proximally and 1 distally, and divided with Endo scissors. Further dissection at the base of the gallbladder with the Maryland dissector then revealed the cystic artery behind and just medial to this, also behind the lymph node of Calot, and the artery was similarly clipped 2 proximally and 1 distally and divided with Endo scissors. The hook cautery was then used to begin taking the gallbladder off the liver bed, and this proceeded all the way to the fundus of the gallbladder, with a couple of small oozing spots from the liver bed cauterized with a hook cautery as we went. Once the gallbladder had been completely at the top of the liver edge, it was placed in an EndoCatch bag through the umbilical port site and retrieved out of that location with the camera in the subxiphoid port. The gallbladder was passed off as a pathology specimen, and the Connie trocar and pneumoperitoneum were re-established. The camera was returned to the umbilical port, and the operative field inspected for hemostasis. One small area of oozing in the liver bed was cauterized with the hook cautery. The area was irrigated with saline and suctioned free of fluid and blood clot, and the 5-mm ports all removed under direct vision. The Connie trocar and camera were then also removed, and the abdomen exsufflated of carbon dioxide. The patient was returned to neutral position prior to this, and the stay suture at the umbilical site was tied to close the fascia there. All port sites were irrigated with saline solution and injected with local anesthetic. The skin was closed with 4-0 Vicryl subcuticular sutures, including a running at the umbilical site. Benzoin and Steri-Strips were applied to all incisions, which were then covered with dressings of gauze and Tegaderm. Counts were correct at the end of the procedure. The patient was then awakened and extubated by anesthesia, moved back to a stretcher, and taken to the recovery room in stable condition having tolerated the procedure well. Dr. Quintanilla was an essential magistrate assistant, facilitating entry into the abdominal cavity, retraction and manipulation of the gallbladder throughout the case, and assistance with skin closure at the end. Loi Garcia M.D. [id number] MTDD
[2017-05-10] MEDS ORDERED: MORPHINE SULFATE 10 MG/1 ML *VIAL IVPUSH ONE (15:15)
[2017-05-10] MEDS ORDERED: morphine CARPU-JECT 4 MG/1 ML DISP.SYRIN IVPUSH PRN (15:18)
[2017-05-10] MEDS ORDERED: MORPHINE SULFATE 10 MG/1 ML *VIAL IVPUSH PRN (15:26)
[2017-05-10] MEDS ORDERED: cefOXitin SODIUM 2 GM VIAL (RESTRICTED TO ID) IVPB ONE ×2 (18:00)
[2017-05-10] MEDS: ACETAMINOPHEN 325 MG TABLET (FP) PO PRN (18:49)
--- NOTE | 2017-05-11 09:54 | DS ---
Physical Examination Vital Signs: Vital Signs Temperature 98.2 F 05/11/17 06:00 Pulse Rate 66 05/11/17 06:00 Respiratory Rate 18 05/11/17 06:00 Blood Pressure 122/70 05/11/17 06:00 O2 Sat by Pulse Oximetry (%) 97 05/10/17 21:00 Findings/Remarks: Pt seen and examined in bed. Feeling better. Pain minimal, controlled with tylenol and ibuprofen. Eating well. Voiding and ambulating. Ready to go home. No fevers or nausea. Constitutional: Yes: Well Nourished, No Distress, Calm Eyes: Yes: Conjunctiva Clear, EOM Intact HENT: Yes: Atraumatic, Normocephalic Cardiovascular: Yes: Regular Rate and Rhythm. No: Murmur Respiratory: Yes: Regular, CTA Bilaterally Gastrointestinal: Yes: Soft, Tenderness (minimal incisional, mainly umbilical). No: Distention Musculoskeletal: No: Joint Stiffness, Joint Swelling Extremities: No: Cool, Cyanosis Integumentary: Yes: Incision (x4 dressed), Tattoos. No: Jaundice, Rash Wound/Incision: Yes: Steri Strips (under dressings), Dressing Dry and Intact (x4 ). No: Dressing Removed Neurological: Yes: Alert, Oriented Labs: no new labs Discharge Summary Reason For Visit: ACUTE CHOLECYSTITIS Current Active Problems Calculus of gallbladder with acute cholecystitis with obstruction (Acute) - impacted stone, hydrops Marijuana abuse, continuous (Acute) RUQ pain (Acute) Procedures: Principal: laparoscopic cholecystectomy Hospital Course: 32yo healthy male [employer] user presented with RUQ pain after junk food/fatty food binge for almost a week, and had been seen in ER several days prior but discharged with dx of gas pain. The pain persisted, and Dr. Dang sent him back to ER, where US showed an impacted stone in the gallbladder neck. WBC was 11, and he was admitted to surgery for acute cholecystitis, given fluids and antibiotics, and taken to OR for uneventful laparoscopic cholecystectomy with findings of hydrops. Postoperatively, he initially required narcotic pain medication, but since yesterday evening, his pain has been much less and controlled with tylenol and ibuprofen. He is ambulating, voiding and tolerating regular diet. He is discharged home to follow up in two weeks, and advised to see his PMD again within a couple of weeks. Time spent on discharge 35 minutes. Condition: Good - Instructions Diet, Activity, Other Instructions: Postoperative instructions: You had a laparoscopic cholecystectomy on 05/10/[address] Loi Garcia of [facility]. Activity: Resume your usual activities gradually, but no heavy exertion or lifting more than 15-20 pounds for 1 month. Remove dressings 48 hours after surgery; sticky tapes underneath will fall off by themselves. You may shower daily starting then, just pat the incision areas dry. No bath or swimming until skin incisions have healed. Eat lightly at first, but advance to your usual diet as tolerated. Pain: For pain, you may use and alternate Tylenol (acetaminophen) 1-2 tabs and/ or ibuprofen 200-600mg every 6 hours each as needed; this means that you can take one OR the other at 3-hour intervals. Do not take more than 4000mg of acetaminophen in a day. Take medications as prescribed or indicated on the labeling. Follow-up: Call Dr. Garcia's office at [phone] to make your postop appointment (Saturday ~2 weeks after surgery). Clinic is held in the [facility] on the first floor of [facility]. Call the office if you have: * increasing pain not responsive to pain medication * fever of 101F or higher * vomiting * unusual or increasing bleeding or drainage from wounds * increasing redness or swelling at wound sites * inability to urinate Also, see your primary medical doctor, Dr. Dang, within 1-2 weeks. Disposition: HOME - Home Medications Comprehensive Discharge Medication List: Ambulatory Orders Acetaminophen [Tylenol .Regular Strength -] 650 mg PO Q6H PRN tablet 05/11/17 Ibuprofen [Motrin -] 600 mg PO Q6H PRN tablet 05/11/17
[2017-05-11] MEDS: ACETAMINOPHEN 325 MG TABLET (FP) PO PRN (09:58)
[2017-05-11 10:05] VITALS: BP 125/70; PULSE 65; TEMP 97.9
--- NOTE | 2017-05-14 09:57 | PATH ---
Surgical Pathology Report Patient Name: FELICITA MOCK [facility]. Rec. #: [id number] /Age/Gender: 1985 (Age: 32) / M Account: [id number] Location: [facility] MED/SURG Taken: 05/10/2017 Received: 05/10/2017 Reported: 05/14/2017 Physicians: Loi Garcia M.D. Specimen(s) Received GALLBLADDER Clinical History Acute cholecystitis, impacted stone Final Diagnosis GALLBLADDER, LAPAROSCOPIC CHOLECYSTECTOMY: ACUTE AND CHRONIC HEMORRHAGIC CHOLECYSTITIS WITH CHOLELITHIASIS. ONE BENIGN PERIDUCTAL LYMPH NODE (0/1). Electronically Signed Yuliana Will M.D. Gross Description Received in formalin, labeled "gallbladder," is a 8.0 x 2.8 x 2.7 cm. gallbladder with a 0.2 cm. in length portion of cystic duct attached. There is a 1.1 x 0.8 x 0.6 cm pink-negrete periductal lymph node present The outer surface is negrete-red and varies from smooth to shaggy. The lumen contains red, hemorrhagic bile as well as a 2.2 cm in greatest dimension green, ovoid cholelith. The mucosa is negrete-red and focally hyperemic. The wall of the gallbladder averages 0.3 cm. in thickness. Technical Programs Manager sections are submitted in 2 cassettes as follows: 1-cystic duct margin and one whole bisected lymph node; 2-metals sales representative gallbladder mucosa. 05/10/201705/10/2017
== END 2017-05-11 10:08 | disposition home or self-care (01) | DRG 261 ==
LOC: JER 20:14 → JERBED 21:20 → J8W 23:25
PROVIDERS: ADMIT Surgery; ATTEND Surgery
PROC: 0FC44ZZ Extirpation of Matter from Gallbladder, Percutaneous Endoscopic Approach (ICD-10-PCS; 2017-05-10)
PROC: 0FT44ZZ Resection of Gallbladder, Percutaneous Endoscopic Approach (ICD-10-PCS; principal; 2017-05-10 10:00)
DX: K80.01 Calculus of gallbladder with acute cholecystitis with obstruction (principal); K66.0 Peritoneal adhesions (postprocedural) (postinfection); F12.10 Cannabis abuse, uncomplicated; R10.11 Right upper quadrant pain; K82.1 Hydrops of gallbladder
CPT/HCPCS: 36415; 80053; 83690; 85025; 85610; 85730; 86850; 86900; 86901; 88304-TC; 94010; 94760; 99283-25

== ENCOUNTER 2018-01-11 12:09 | Emergency (ER) | payer OTHER ==
[2018-01-11 12:17] VITALS: BP 136/79; PULSE 82; TEMP 97.2; BMI 25.8
[2018-01-11] MEDS ORDERED: LACTATED RINGERS SOLUTION 1,000 ML IV STA (12:57)
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
[2018-01-11] MEDS ORDERED: ONDANSETRON 4 MG/2 ML VIAL IVPUSH ONE (13:01)
[2018-01-11] MEDS ORDERED: ACETAMINOPHEN 1000 MG/100 ML VIAL (NON FORMULARY) IVPB ONE (13:01)
--- NOTE | 2018-01-11 13:03 | PDOC ---
History of Present Illness - History of Present Illness Initial Comments: 01/11/18 13:02 33 M w/ PMH lap eevlina 05/2017, p/w n/v, SHELLEY, and episode of shaking in setting of etoh intoxication. Pt went out drinking last night for his birthday (says he normally does not drink), drank 1/2 bottle of whiskey, woke up this morning and had nausea w/ multiple episodes of bilious vomit. pt was unable to drink or eat. While driving pt began experiencing sweating, coldness, w/ whole body shaking as well as occipital SHELLEY and felt like he was going to pass out. Pt last drink was 4am. Denies LOC, cp, sob, fever, abd pain, urinary sxs, blood in stools, blurry vision, focal deficits. Of note in our ED pt endorses arm numbness and unable to move hand when BP was being taken. SH: denies smoke, etoh. +marijuana daily <Avila Dowling - Last Filed: 01/11/18 15:04> <Jyoti Liu - Last Filed: 01/11/18 15:17> - General Chief Complaint: Alcohol intoxication Stated Complaint: NAUSEA/VOMITING Time Seen by Provider: 01/11/18 12:57 Past History - Past Medical History COPD: No - Immunization History Immunization Up to Date: Yes - Suicide/Smoking/Psychosocial Hx Smoking History: Never smoked Have you smoked in the past 12 months: No Information on smoking cessation initiated: No Hx Alcohol Use: No Drug/Substance Use Hx: No Substance Use Type: Marijuana <Avila Dowling - Last Filed: 01/11/18 15:04> <Jyoti Liu - Last Filed: 01/11/18 15:17> - Past Medical History Allergies/Adverse Reactions: Allergies Allergy/AdvReac Type Severity Reaction Status Date / Time peanut Allergy Verified 05/09/17 20:22 Home Medications: Ambulatory Orders Acetaminophen [Tylenol .Regular Strength -] 650 mg PO Q6H PRN tablet 05/11/17 Ibuprofen [Motrin -] 600 mg PO Q6H PRN tablet 05/11/17 Ondansetron HCl [Zofran] 4 mg PO TID 3 Days #9 tablet 01/11/18 Review of Systems - Review of Systems Constitutional: Yes: See HPI HEENTM: Yes: See HPI Respiratory: Yes: See HPI Cardiac (ROS): Yes: See HPI ABD/GI: Yes: See HPI : Yes: See HPI Musculoskeletal: Yes: See HPI Integumentary: Yes: See HPI Neurological: Yes: See HPI Endocrine: Yes: See HPI Hematologic/Lymphatic: Yes: See HPI <Avila Dowling - Last Filed: 01/11/18 15:04> *Physical Exam - Vital Signs Last Vital Signs Temp Pulse Resp BP Pulse Ox 97.2 F L 82 74 H 136/79 100 01/11/18 12:12 01/11/18 12:12 01/11/18 12:12 01/11/18 12:12 01/11/18 12:12 - Physical Exam Comments: 01/11/18 13:12 GENERAL: NAD HEENT: NCAT PERRLA, sclera anicteric, Hearing grossly normal, MMM. EOMI NECK: Normal ROM, supple. LUNGS: CTAB HEART: RRR normal S1 and S2, no murmurs appreciated, peripheral pulses normal and equal bilaterally. ABDOMEN: Soft, NTND +BS. EXTREMITIES: No edema or leg calf tenderness. NEUROLOGICAL: AOX3, no focal deficits. strength intact. CN I- XII intact. FNT nl , no cerebellar deficits. gait normal. no tremors. DTRs 2+ b/l SKIN: Warm, Dry. <Avila Dowling - Last Filed: 01/11/18 15:04> - Vital Signs Last Vital Signs Temp Pulse Resp BP Pulse Ox 97.2 F L 82 74 H 136/79 100 01/11/18 12:12 01/11/18 12:12 01/11/18 12:12 01/11/18 12:12 01/11/18 12:12 <Jyoti Liu - Last Filed: 01/11/18 15:17> ED Treatment Course - Medications Given in the ED: ED Medications Discontinued Medications Generic Name Dose Route Start Last Admin Trade Name Freq PRN Reason Stop Dose Admin Acetaminophen 1,000 mg 01/11/18 13:01 01/11/18 13:50 Ofirmev Injection - IVPB 01/11/18 13:02 1,000 mg ONCE ONE Administration Lactated Ringer's 1,000 mls @ 1,000 mls/hr 01/11/18 12:57 01/11/18 14:41 Lactated Ringers Solution IV 01/11/18 13:56 1,000 mls/hr ONCE STA Administration Ondansetron HCl 4 mg 01/11/18 13:01 01/11/18 13:40 Zofran Injection IVPUSH 01/11/18 13:02 4 mg ONCE ONE Administration <Jyoti Liu - Last Filed: 01/11/18 15:17> Medical Decision Making - Medical Decision Making 01/11/18 13:10 33 M w/ PMH lap evelina 05/2017, p/w n/v, SHELLEY, and episode of shaking in setting of etoh intoxication. Ddx: dehydration, etoh withdrawal/abuse, hypoglycemia, pancreatitis, -CBC, CMP, lipase, UA -EKG -IVF LR, Zofran, tylenol 01/11/18 14:59 pt recieved fluids. feeling better refused labs. no c/o belly pain and tolerating PO pt is safe and stable for discharge <Avila Dowling - Last Filed: 01/11/18 15:04> - Medical Decision Making pt left prior to repeat VS and discharge paperwork, did discuss the information and workup and reassuring appearance armin PO without difficulty, no acute events and no abdominal or chest/ respiratory sx. has PMD to followup, return precautions discussed 01/11/18 15:17 <Jyoti Liu - Last Filed: 01/11/18 15:17> *DC/Admit/Observation/Transfer - Discharge Dispostion Decision to Admit order: No <Avila Dowling - Last Filed: 01/11/18 15:04> <Jyoti Liu - Last Filed: 01/11/18 15:17> Diagnosis at time of Disposition: Alcohol use, Nausea & vomiting - Discharge Dispostion Disposition: HOME Condition at time of disposition: Stable - Prescriptions Prescriptions: Ondansetron HCl [Zofran] 4 mg PO TID 3 Days #9 tablet - Referrals Referrals: Juaquin Dang MD [Primary Care Provider] - - Patient Instructions Additional Instructions: you came in with a hangover and vomiting after having alcohol intoxication we gave you fluids which relieved your symptoms Please avoid heavy drinking please follow up with your primary care physician in 1 week We will prescribe you zofran for nausea If you experience, fever, belly pain, chills, chest pain, shortness of breath, tremors, hallucinations, nausea vomit, please call 911 or come back to the ER
[2018-01-11] MEDS ORDERED: ONDANSETRON 4 MG/2 ML VIAL ONE (13:57)
[2018-01-11] MEDS ORDERED: ACETAMINOPHEN INJECTION 100 ML IVPB ONE (13:57)
--- NOTE | 2018-01-11 16:39 | EKG ---
Test Reason : Blood Pressure : / mmHG Vent. Rate : 067 BPM Atrial Rate : 067 BPM P-R Int : 146 ms QRS Dur : 080 ms QT Int : 438 ms P-R-T Axes : 042 -35 022 degrees QTc Int : 462 ms NORMAL SINUS RHYTHM LEFT AXIS DEVIATION ABNORMAL ECG WHEN COMPARED WITH ECG OF 05-MAY-2017 02:45, NO SIGNIFICANT CHANGE WAS FOUND Confirmed by LEON SOLIS MD ([id number]) on 01/11/2018 4:39:08 PM Referred By: Confirmed By:LEON SOLIS MD
== END 2018-01-11 15:10 | disposition home or self-care (01) ==
LOC: JER 12:09
PROC: 3E0337Z Introduction of Electrolytic and Water Balance Substance into Peripheral Vein, Percutaneous Approach (ICD-10-PCS; principal; 2018-01-11)
PROC: 3E033NZ Introduction of Analgesics, Hypnotics, Sedatives into Peripheral Vein, Percutaneous Approach (ICD-10-PCS; 2018-01-11)
PROC: 3E033GC Introduction of Other Therapeutic Substance into Peripheral Vein, Percutaneous Approach (ICD-10-PCS; 2018-01-11)
DX: F10.10 Alcohol abuse, uncomplicated (principal); R11.2 Nausea with vomiting, unspecified
CPT/HCPCS: 93005; 93010; 96361; 96374; 96375; 99282-25; J0131

== ENCOUNTER 2019-04-29 17:50 | Emergency (ER) | payer OTHER ==
[2019-04-29 17:57] VITALS: BP 138/76; PULSE 101; TEMP 99.2; BMI 29.0
[2019-04-29] MEDS ORDERED: IBUPROFEN 600 MG TABLET (FP) PO ONE ×2 (17:59→18:10)
--- NOTE | 2019-04-29 17:59 | PDOC ---
Rapid Medical Evaluation Time Seen by Provider: 04/29/19 17:52 Medical Evaluation: Allergies Allergy/AdvReac Type Severity Reaction Status Date / Time peanut Allergy Verified 04/29/19 17:53 04/29/19 17:53 Pt presents for one day of fever, cough, flu like symptoms. Pt taking Theraflu with some relief of symptoms. Pt states he got a flu shot on Saturday. Exam: lungs ctab, throat with out exudate or edema Orders: flu, motrin Pt to present to the ER for further evaluation Discharge Disposition - Diagnosis Fever - Referrals - Patient Instructions - Post Discharge Activity
--- NOTE | 2019-04-29 18:19 | PDOC ---
History of Present Illness - General Chief Complaint: Cold Symptoms Stated Complaint: FLU LIKE SYMPTOMS Time Seen by Provider: 04/29/19 17:52 History Source: Patient Exam Limitations: No Limitations - History of Present Illness Initial Comments: 04/29/19 18:16 34-year-old male history of GERD presents complaining of subjective fever, chills, cough, frontal headache when coughing for 24 hours. Patient received a flu vaccine 2 days ago. Denies sick contacts, recent travel, chest pain, shortness of breath, abdominal pain, vomiting, diarrhea. Patient took TheraFlu at noon today. ROS: As above PE: GENERAL: well-appearing, NAD HEAD: NCAT EYES: Pupils equal, round and reactive to light, sclera anicteric, conjunctiva clear ENT: pharynx: no erythema, no exudate, uvula midline NECK: supple CHEST: nontender RESP: clear, no w/r/r CARDIO: rrr, no m/g/r ABD: +BS, soft, nontender, non distended BACK: no midline spinal ttp, no CVAT EXTREMITIES: Normal range of motion, no edema NEUROLOGICAL: Normal speech, normal gait SKIN: Warm, Dry Is this a multiple visit Asthma Patient?: No Past History - Past Medical History Allergies/Adverse Reactions: Allergies Allergy/AdvReac Type Severity Reaction Status Date / Time peanut Allergy Verified 04/29/19 17:53 Home Medications: Ambulatory Orders Acetaminophen [Tylenol .Regular Strength -] 650 mg PO Q6H PRN tablet 05/11/17 Ibuprofen [Motrin -] 600 mg PO Q6H PRN tablet 05/11/17 Ondansetron HCl [Zofran] 4 mg PO TID 3 Days #9 tablet 01/11/18 Oseltamivir Phosphate [Tamiflu] 75 mg PO BID 5 Days #10 capsule 04/29/19 COPD: No - Immunization History Immunization Up to Date: Yes - Psycho Social/Smoking Cessation Hx Smoking History: Never smoked Have you smoked in the past 12 months: No Hx Alcohol Use: No Drug/Substance Use Hx: No Substance Use Type: Marijuana *Physical Exam - Vital Signs Last Vital Signs Temp Pulse Resp BP Pulse Ox 99.2 F 101 H 18 138/76 98 04/29/19 17:53 04/29/19 17:53 04/29/19 17:53 04/29/19 17:53 04/29/19 17:53 ED Treatment Course - Medications Given in the ED: ED Medications Discontinued Medications Generic Name Dose Route Start Last Admin Trade Name Keli PRN Reason Stop Dose Admin Ibuprofen 600 mg 04/29/19 17:59 04/29/19 18:12 Motrin - PO 04/29/19 18:00 600 mg ONCE ONE Administration Medical Decision Making - Medical Decision Making 04/29/19 18:18 34-year-old male presents with subjective fever, chills, cough, frontal headache when coughing and body aches x24 hours. He received the flu vaccine 2 days ago. P.o. ibuprofen given Awaiting flu swab results 04/29/19 18:53 Influenza A positive Stable for discharge Supportive care Return precautions Note for work provided Discharge - Discharge Information Problems reviewed: Yes Clinical Impression/Diagnosis: Influenza A Condition: Stable Disposition: HOME - Admission No - Additional Discharge Information Prescriptions: Oseltamivir Phosphate [Tamiflu] 75 mg PO BID 5 Days #10 capsule - Follow up/Referral Referrals: Juaquin Dang MD [Primary Care Provider] - - Patient Discharge Instructions Additional Instructions: Take Tamiflu 75 mg 1 tablet twice a day for 5 days Rest, hydrate Return to ED if worsening pain, fever, chills, vomiting, diarrhea or worsening symptoms Follow up with your primary care doctor within 1 week - Post Discharge Activity Work/Back to School Note: Back to Work
== END 2019-04-29 19:02 | disposition home or self-care (01) ==
LOC: JERFT 17:50
DX: J09.X2 Influenza due to identified novel influenza A virus with other respiratory manifestations (principal); Z91.010 Allergy to peanuts
CPT/HCPCS: 87804; 99281-25

== ENCOUNTER 2022-07-07 08:13 | Emergency (ER) | payer OTHER ==
[2022-07-07 08:28] VITALS: BP 141/69; PULSE 90; RESP 18; TEMP 97; BMI 27.7
[2022-07-07] MEDS ORDERED: ACETAMINOPHEN 500 MG TABLET (FP) PO ONE (08:33)
[2022-07-07] MEDS ORDERED: ACETAMINOPHEN 500 MG TABLET (FP) ONE (08:45)
== END 2022-07-07 09:28 | disposition home or self-care (01) ==
LOC: JER 08:13 → JERFT 08:13
DX: M25.571 Pain in right ankle and joints of right foot (principal)
CPT/HCPCS: 73610-TC-RT-FY; 73630-TC-RT-FY; 99283-25

== ENCOUNTER 2023-03-14 13:54 | Emergency (ER) | payer OTHER ==
[2023-03-14 14:20] VITALS: BP 127/87; PULSE 68; RESP 16; TEMP 98.2; BMI 30.7
[2023-03-14 20:33] LABS: HIV INTERPRETATION NEGATIVE (NEGATIVE)
== END 2023-03-14 16:25 | disposition home or self-care (01) ==
LOC: JER 13:54 → JERFT 13:54
DX: R53.83 Other fatigue (principal); R51.9 Headache, unspecified
CPT/HCPCS: 36415; 82930; 86618; 86753; 87207; 87389; 99283-25

== ENCOUNTER 2023-04-03 11:36 | Emergency (ER) | payer OTHER ==
[2023-04-03 11:42] VITALS: BP 154/93; PULSE 74; RESP 18; TEMP 97.8; BMI 30.7
[2023-04-03] MEDS ORDERED: MAG HYDROX/AL HYDROX/SIMETH 30 ML UNIT-DOSE CUP PO ONE (13:40)
[2023-04-03] MEDS ORDERED: FAMOTIDINE 20 MG/50 ML IVPB 20 MG/50 ML MG IVPB ONE ×2 (13:40→14:03)
[2023-04-03] MEDS ORDERED: KETOROLAC TROMETHAMINE 30 MG/1 ML VIAL IVPUSH ONE (13:41)
[2023-04-03 14:00] LABS: BASO % 0.2 % (0-2.0); EOS % 8.8 % (0-4.5); HEMOGLOBIN 14.2 GM/dL (11.7-16.9); LYMPH % 36.2 % (8-40); MCH 30.5 pg (25.7-33.7); MCHC 34.7 g/dl (32.0-35.9); MEAN PLT VOLUME 7.8 fl (7.5-11.1); MONO % 6.5 % (3.8-10.2); NEUT % 48.3 % (42.8-82.8); PLATELET COUNT 310 10^3/uL (134-434); RBC 4.66 M/mm3 (4.00-5.60); RDW 13.8 % (11.9-15.9); WHITE BLOOD COUNT 6.3 K/mm3 (4.0-10.0)
[2023-04-03] MEDS ORDERED: KETOROLAC TROMETHAMINE 30 MG/1 ML VIAL ONE (14:03)
[2023-04-03] MEDS ORDERED: MAG HYDROX/AL HYDROX/SIMETH 30 ML UNIT-DOSE CUP ONE (14:03)
[2023-04-03 14:26] LABS: POTASSIUM 4.4 mmol/L (3.5-5.1)
[2023-04-03 14:28] LABS: CALCIUM 8.9 mg/dL (8.5-10.1)
[2023-04-03 14:30] LABS: ALBUMIN 3.9 g/dl (3.4-5.0); BLOOD UREA NITROGEN 11.1 mg/dL (7-18)
[2023-04-03 14:33] LABS: CREATININE 0.9 mg/dL (0.55-1.3)
[2023-04-03 14:34] LABS: BILIRUBIN,TOTAL 0.4 mg/dL (0.2-1); TOT PROT 7.7 g/dl (6.4-8.2)
== END 2023-04-03 16:48 | disposition home or self-care (01) ==
LOC: JER 11:36
PROC: 3E033GC Introduction of Other Therapeutic Substance into Peripheral Vein, Percutaneous Approach (ICD-10-PCS; principal; 2023-04-03)
PROC: 3E0333Z Introduction of Anti-inflammatory into Peripheral Vein, Percutaneous Approach (ICD-10-PCS; 2023-04-03)
DX: R07.89 Other chest pain (principal); K21.9 Gastro-esophageal reflux disease without esophagitis; R11.0 Nausea
CPT/HCPCS: 36415; 71046-TC-FY; 80053; 84484; 85025; 85379; 93005; 93010; 99285-25

== ENCOUNTER 2023-12-13 04:40 | Day surgery (SDC) | payer OTHER ==
[2023-12-11 08:16] VITALS: BMI 32.5
[2023-12-13 10:54] VITALS: TEMP 98
[2023-12-13 11:15] VITALS: BP 143/81; PULSE 65; RESP 15
== END 2023-12-13 11:30 | disposition home or self-care (01) ==
LOC: JASU-ENDO 04:40
PROVIDERS: ATTEND Internal Medicine Gastroenterology
PROC: 0DB98ZX Excision of Duodenum, Via Natural or Artificial Opening Endoscopic, Diagnostic (ICD-10-PCS; 2023-12-13)
PROC: 0DB68ZX Excision of Stomach, Via Natural or Artificial Opening Endoscopic, Diagnostic (ICD-10-PCS; 2023-12-13)
PROC: 0DB48ZX Excision of Esophagogastric Junction, Via Natural or Artificial Opening Endoscopic, Diagnostic (ICD-10-PCS; 2023-12-13)
PROC: 0DBB8ZX Excision of Ileum, Via Natural or Artificial Opening Endoscopic, Diagnostic (ICD-10-PCS; principal; 2023-12-13 10:00)
DX: K20.90 Esophagitis, unspecified without bleeding (principal); K44.9 Diaphragmatic hernia without obstruction or gangrene; K64.0 First degree hemorrhoids; K64.8 Other hemorrhoids
CPT/HCPCS: 88305-TC; 88342-TC